=== PATIENT | male | born 1945 | race Caucasian/White ===

== ENCOUNTER → 2021-05-22 13:01 | Outpatient (BNVA) | payer MEDICARE, SELFPAY | PROVIDERS: PCP Family Medicine; Visit Provider Psychiatry & Neurology Neurology | DX: G20 Parkinson's disease (principal); F41.9 Anxiety disorder, unspecified; F32.A Depression, unspecified | CPT/HCPCS: 99202 ==

== ENCOUNTER → 2021-08-04 10:28 | Outpatient (BNVA) | payer MEDICARE, SELFPAY | PROVIDERS: PCP Family Medicine; Visit Provider Psychiatry & Neurology Neurology | DX: G20 Parkinson's disease (principal); F41.9 Anxiety disorder, unspecified; F32.A Depression, unspecified | CPT/HCPCS: 99212 ==

== ENCOUNTER → 2021-10-27 09:53 | Outpatient (BNVA) | payer MEDICARE, SELFPAY | PROVIDERS: PCP Family Medicine; Visit Provider Psychiatry & Neurology Neurology | DX: G20 Parkinson's disease (principal); F41.9 Anxiety disorder, unspecified; F32.A Depression, unspecified; Z79.899 Other long term (current) drug therapy | CPT/HCPCS: 99212 ==

== ENCOUNTER → 2022-02-02 13:28 | Outpatient (BNVA) | payer MEDICARE, SELFPAY | PROVIDERS: PCP Family Medicine; Visit Provider Psychiatry & Neurology Neurology | DX: G20 Parkinson's disease (principal); F41.9 Anxiety disorder, unspecified; F32.A Depression, unspecified; Z79.899 Other long term (current) drug therapy | CPT/HCPCS: 99212 ==

== ENCOUNTER → 2022-05-11 11:03 | Outpatient (BNVA) | payer MEDICARE, SELFPAY | PROVIDERS: PCP Family Medicine; Visit Provider Psychiatry & Neurology Neurology | DX: G20 Parkinson's disease (principal); C85.10 Unspecified B-cell lymphoma, unspecified site; T45.1X5A Adverse effect of antineoplastic and immunosuppressive drugs, initial encounter; F32.A Depression, unspecified; F41.9 Anxiety disorder, unspecified; Z94.84 Stem cells transplant status | CPT/HCPCS: 99212 ==

== ENCOUNTER 2022-09-14 10:30 | Outpatient (AMB) | payer MEDICARE, SELFPAY ==
--- NOTE | 2022-09-14 10:43 | A.OFFVIS_ITS ---
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 He is on sinemet 25/100 tid . His tremors have increased worse in the mornings. He is slower.He reports mild depression,anxiety, lightheaded, fatigued, mild nausea, apathy. Occasional when he stands up he feels mild lightheadedness. Speech is OK , sometimes softer. Its worse ( becomes high and raspy)when stressed. Mild memory issues( chemo brain )- takes lions noel. He also has drooling at night.sleeps with mouth open. Sleep is good. denies any REM behavior disorder. No falls. 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 he has tried venlafaxine , buspar , hydroxyzine.desvenlafaxine He tried to have TMS for anxiety and depression was told that he was not a candidate . [facility], [facility] Medical History (Updated 09/14/22 @ 11:11 by Bethany Vera MD) B-cell lymphoma Chemotherapy adverse reaction Depression Hypersomnia Snoring Surgical History No pertinent past surgical history Stem cells transplant status Family History Brother ALS (amyotrophic lateral sclerosis) Mother Stroke Bladder cancer Father Stroke Social History Household Members: Spouse Alcohol intake: current Alcohol intake frequency: a few times a month Patient Tobacco Use Status: Former Tobacco user Current occupational status: retired Physical Exam Vital Signs: Last Vital Signs Pulse 78 09/14/22 10:46 BP 102/52 L 09/14/22 10:46 Pulse Ox 98 09/14/22 10:46 Oxygen Delivery Method Room Air 09/14/22 10:46 Eyes Pupils: Equal, round and reactive pupils present Neuro Other: UPDRS - 3 Moderately decreased blink and facial expression Speech 1-Slight loss of expression,diction or volume Facial expression 3-Moderate hypomimia,lips parted some of the time Rest Tremors( head, Upper, lower ) 1-Slight and infrequent Action and Postural tremors 0-none Rigidity 2-Mild to Moderate L>R Finger Taps 1-Mild slowing an d or reduction in amplitude Hand movements 1-mild slowing and or reduction in amplitude Rapid Alternating Movements of Hands 1-Mild slowing and or reduction in amplitude Leg agility 1-mild slowing and reduction in amplitude Arising from a chair 0-Normal Posture 1-slightly stooped, could be normal for an older person Gait 0-normal- normal stride decreased arm swing L>R mild stoop Postural stability 1-retropulsion but recovers unaided Body bradykinesia and hypokinesia 1-minimal slowness,giving movement a deliberate character,could be normal for some persons.Possible reduced amplitude Cranial nerves: Yes CN's II-XII intact bilaterally, Yes Equal, round and reactive pupils present, Yes Bilaterally intact EOM present, Yes Nystagmus not present, Yes Normal facial strength present and Yes Midline tongue present Cognition (Neuro): normal cognition Motor exam (neuro): 5/5 motor strength present throughout Psych Affect: normal affect Assessment & Plan Assessment & Plan (1) Parkinson's disease: Code(s): G20 - Parkinson's disease (2) Anxiety: Code(s): F41.9 - Anxiety disorder, unspecified (3) Depression: Code(s): F32.A - Depression, unspecified (4) Snoring: Code(s): R06.83 - Snoring (5) Hypersomnia: Code(s): G47.10 - Hypersomnia, unspecified Plan Sinemet 25/100 tid - suggested to separate it form protein meals by 30 min Add sinemet 25/100 CR qhs Continue physical activity MRI brain - discussed with patient - normal F/u psychiatry Home sleep test Orders: Orders RT home sleep study Today G47.10 - Hypersomnia, unspecified, R06.83 - Snoring Medications: New carbidopa-levodopa 25-100 mg ER 1 tab PO BEDTIME 30 tabs 5RF Coding Level of Care Code Est Pt Level 4 (81619) Diagnoses Parkinson's disease G20 Anxiety F41.9 Depression F32.A Snoring R06.83 Hypersomnia G47.10
[2022-09-14 10:46] VITALS: BP 102/52; PULSE 78; O2SAT 98
== END 2022-09-14 11:17 | disposition home or self-care (01) ==
PROVIDERS: Visit Provider Psychiatry & Neurology Neurology
DX: G20 Parkinson's disease (principal); F41.9 Anxiety disorder, unspecified; F32.A Depression, unspecified; R06.83 Snoring; G47.10 Hypersomnia, unspecified
CPT/HCPCS: 99214

== ENCOUNTER → 2022-09-14 10:30 | Outpatient (BNVA) | payer MEDICARE, SELFPAY | PROVIDERS: Visit Provider Psychiatry & Neurology Neurology | DX: G20 Parkinson's disease (principal); R06.83 Snoring; G47.10 Hypersomnia, unspecified; F41.9 Anxiety disorder, unspecified; F32.A Depression, unspecified | CPT/HCPCS: 99212 ==

== ENCOUNTER → 2022-10-26 13:13 | Outpatient (REF) | payer MEDICARE, SELFPAY | LOC: HO.SL 13:13 | PROVIDERS: Visit Provider Psychiatry & Neurology Neurology | DX: R06.83 Snoring (principal); G47.10 Hypersomnia, unspecified | CPT/HCPCS: 95806 ==

== ENCOUNTER → 2022-10-26 13:35 | Outpatient (BNV) | payer MEDICARE, SELFPAY | PROVIDERS: Visit Provider Psychiatry & Neurology Neurology | DX: R06.83 Snoring (principal) | CPT/HCPCS: 95806 ==

== ENCOUNTER 2023-02-08 11:05 | Outpatient (AMB) | payer MEDICARE, SELFPAY ==
--- NOTE | 2023-02-08 11:36 | MHC.OFFVIS ---
Intake Vital Signs 02/08/23 11:37 Height 5 ft 11 in Weight 188 lb BMI 26.2 BP 110/62 Blood Pressure Location Lt brachial Position Sitting Respiration 15 Pulse 76 Pulse Source Palpation Intake Visit Reasons: 4 mnts f/u appt - Confirmed Intake Note: Pt presents for a 4 month follow up for anxiety. 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 Mood has been worse- depressed, anxious and apathetic.he has tried venlafaxine , buspar , hydroxyzine.desvenlafaxine He tried to have TMS for anxiety and depression was told that he was not a candidate . He has a therapist.He is not exercising much due to the move. He is very sensitive to medications He reports dry mouth, constipation, frequent urination, weakness , increased tremors,sleepiness and tiredness, blurry vision.He wants to know if its related to sinemet. He is on sinemet 25/100 tid and ER at night. . His tremors have increased worse in the mornings. He is slower.He reports mild depression,anxiety, lightheaded, fatigued, mild nausea, apathy.He has some comprehension issues, spaciness. Occasional when he stands up he feels mild lightheadedness. Speech is OK , sometimes softer. Its worse ( becomes high and raspy)when stressed. Mild memory issues( chemo brain )- takes lions noel. He also has drooling at night.sleeps with mouth open. Sleep is good. denies any REM behavior disorder. No falls. [facility] Medical History (Updated 02/08/23 @ 12:01 by Bethany Vera MD) Parkinson's disease without dyskinesia or fluctuating manifestations Hypersomnia Snoring Depression Chemotherapy adverse reaction B-cell lymphoma Surgical History Stem cells transplant status No pertinent past surgical history Family History Brother ALS (amyotrophic lateral sclerosis) Mother Stroke Bladder cancer Father Stroke Social History Household Members: Spouse Alcohol intake: current Alcohol intake frequency: a few times a month Patient Tobacco Use Status: Former Tobacco user Current occupational status: retired Physical Exam Vital Signs: Last Vital Signs Pulse 76 02/08/23 11:37 Resp 15 02/08/23 11:37 BP 110/62 02/08/23 11:37 BMI result Body Mass Index 26.2 Eyes Pupils: Equal, round and reactive pupils present Neuro Other: UPDRS - 3 Moderately decreased blink and facial expression Speech 1-Slight loss of expression,diction or volume Facial expression 3-Moderate hypomimia,lips parted some of the time Rest Tremors( head, Upper, lower ) 1-Slight and infrequent Action and Postural tremors 0-none Rigidity 2-Mild to Moderate L>R Finger Taps 1-Mild slowing an d or reduction in amplitude Hand movements 1-mild slowing and or reduction in amplitude Rapid Alternating Movements of Hands 1-Mild slowing and or reduction in amplitude Leg agility 1-mild slowing and reduction in amplitude Arising from a chair 0-Normal Posture 1-slightly stooped, could be normal for an older person Gait 0-normal- normal stride decreased arm swing L>R mild stoop Postural stability 1-retropulsion but recovers unaided Body bradykinesia and hypokinesia 1-minimal slowness,giving movement a deliberate character,could be normal for some persons.Possible reduced amplitude Cranial nerves: Yes CN's II-XII intact bilaterally, Yes Equal, round and reactive pupils present, Yes Bilaterally intact EOM present, Yes Nystagmus not present, Yes Normal facial strength present and Yes Midline tongue present Cognition (Neuro): normal cognition Motor exam (neuro): 5/5 motor strength present throughout Psych Affect: normal affect Assessment & Plan Assessment & Plan (1) Parkinson's disease without dyskinesia or fluctuating manifestations: Code(s): G20.A1 - Parkinson's disease without dyskinesia, without mention of fluctuations (2) Depression: Code(s): F32.A - Depression, unspecified (3) Anxiety: Code(s): F41.9 - Anxiety disorder, unspecified Plan continue sinemet 25/100 tid continue sinemet CR 25/100 qhs Miralax as needed I will trial him on duloxetine 20mg bid F/u therapist Medications: New duloxetine 20 mg PO BID 60 caps 0RF polyethylene glycol 3350 (Miralax) 17 grams PO .alternate days 510 grams 6RF Coding Level of Care Code Est Pt Level 4 (31960) Diagnoses Parkinson's disease without dyskinesia or fluctuating manifestations G20.A1 Depression F32.A Anxiety F41.9
[2023-02-08 11:37] VITALS: BP 110/62; PULSE 76; RESP 15; BMI 26.2
== END 2023-02-08 12:25 | disposition home or self-care (01) ==
PROVIDERS: PCP Family Medicine; Visit Provider Psychiatry & Neurology Neurology
DX: G20.A1 Parkinson's disease without dyskinesia, without mention of fluctuations (principal); F32.A Depression, unspecified; F41.9 Anxiety disorder, unspecified
CPT/HCPCS: 99214

== ENCOUNTER → 2023-02-08 11:05 | Outpatient (BNVA) | payer MEDICARE, SELFPAY | PROVIDERS: PCP Family Medicine; Visit Provider Psychiatry & Neurology Neurology | DX: F41.9 Anxiety disorder, unspecified (principal); F32.A Depression, unspecified; G20.A1 Parkinson's disease without dyskinesia, without mention of fluctuations | CPT/HCPCS: 99212 ==

== ENCOUNTER 2023-07-05 11:31 | Outpatient (AMB) | payer MEDICARE, SELFPAY ==
[2023-07-05 11:45] VITALS: BP 106/60; PULSE 77; RESP 16; O2SAT 98; BMI 23.5
--- NOTE | 2023-07-05 11:45 | MHC.OFFVIS ---
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 He is doing exercise program at the and is doing 4-5 classes a week. He moved to a smaller house. Mood has been better since duloxetine. But he feels it caused erectile dysfunction. He is on sinemet 25/100 tid and ER at night. . His tremors have increased worse in the mornings Occasional when he stands up he feels mild lightheadedness. Speech is OK , sometimes softer. Its worse ( becomes high and raspy)when stressed. Mild memory issues( chemo brain )- takes lions noel. He also takes CBD qam and is helping him He also has drooling at night.sleeps with mouth open. Sleep is good. denies any REM behavior disorder. No falls. [facility] Medical History Parkinson's disease without dyskinesia or fluctuating manifestations Hypersomnia Snoring Depression Chemotherapy adverse reaction B-cell lymphoma Surgical History Stem cells transplant status No pertinent past surgical history Family History Brother ALS (amyotrophic lateral sclerosis) Mother Stroke Bladder cancer Father Stroke Social History Household Members: Spouse Alcohol intake: current Alcohol intake frequency: a few times a month Patient Tobacco Use Status: Former Tobacco user Current occupational status: retired Physical Exam Vital Signs: Last Vital Signs Pulse 77 07/05/23 11:45 Resp 16 07/05/23 11:45 BP 106/60 07/05/23 11:45 Pulse Ox 98 07/05/23 11:45 Oxygen Delivery Method Room Air 07/05/23 11:45 BMI result Body Mass Index 23.5 Eyes Pupils: Equal, round and reactive pupils present Neuro Other: UPDRS - 3 Moderately decreased blink and facial expression Speech 1-Slight loss of expression,diction or volume Facial expression 3-Moderate hypomimia,lips parted some of the time Rest Tremors( head, Upper, lower ) 1-Slight and infrequent Action and Postural tremors 0-none Rigidity 2-Mild to Moderate L>R Finger Taps 1-Mild slowing an d or reduction in amplitude Hand movements 1-mild slowing and or reduction in amplitude Rapid Alternating Movements of Hands 1-Mild slowing and or reduction in amplitude Leg agility 1-mild slowing and reduction in amplitude Arising from a chair 0-Normal Posture 1-slightly stooped, could be normal for an older person Gait 0-normal- normal stride decreased arm swing L>R mild stoop Postural stability 1-retropulsion but recovers unaided Body bradykinesia and hypokinesia 1-minimal slowness,giving movement a deliberate character,could be normal for some persons.Possible reduced amplitude Cranial nerves: Yes CN's II-XII intact bilaterally, Yes Equal, round and reactive pupils present, Yes Bilaterally intact EOM present, Yes Nystagmus not present, Yes Normal facial strength present and Yes Midline tongue present Cognition (Neuro): normal cognition Motor exam (neuro): 5/5 motor strength present throughout Psych Affect: normal affect Assessment & Plan Assessment & Plan (1) Parkinson's disease without dyskinesia or fluctuating manifestations: Code(s): G20.A1 - Parkinson's disease without dyskinesia, without mention of fluctuations Category: Medical (2) Depression: Code(s): F32.A - Depression, unspecified Category: Medical (3) Anxiety: Code(s): F41.9 - Anxiety disorder, unspecified Category: Medical Plan continue sinemet 25/100 tid continue sinemet CR 25/100 qhs Miralax as needed Duloxetine 20mg bid I will trial on wellbutrin XL 150mg qam F/u therapist Medications: New bupropion HCl SR (Wellbutrin SR) 150 mg PO QAM 30 tabs 6RF Coding Level of Care Code Est Pt Level 4 (88923) Complex EM visit Add On G2211 Diagnoses Parkinson's disease without dyskinesia or fluctuating manifestations G20.A1 Depression F32.A Anxiety F41.9
== END 2023-07-05 12:07 | disposition home or self-care (01) ==
PROVIDERS: PCP Family Medicine; Visit Provider Psychiatry & Neurology Neurology
DX: G20.A1 Parkinson's disease without dyskinesia, without mention of fluctuations (principal); F32.A Depression, unspecified; F41.9 Anxiety disorder, unspecified
CPT/HCPCS: 99214; G2211

== ENCOUNTER → 2023-07-05 11:31 | Outpatient (BNVA) | payer MEDICARE, SELFPAY | PROVIDERS: PCP Family Medicine; Visit Provider Psychiatry & Neurology Neurology | DX: G20.A1 Parkinson's disease without dyskinesia, without mention of fluctuations (principal); F32.A Depression, unspecified; F41.9 Anxiety disorder, unspecified; Z79.899 Other long term (current) drug therapy | CPT/HCPCS: 99212 ==

== ENCOUNTER 2023-12-13 10:59 | Outpatient (AMB) | payer MEDICARE, SELFPAY ==
--- NOTE | 2023-12-13 11:00 | A.OFFVIS_ITS ---
Vital Signs 12/13/23 11:02 Height 5 ft 11 in Weight 167 lb 4 oz BMI 23.3 BP 120/70 Blood Pressure Location Lt brachial Position Sitting Pulse 74 Pulse Source Pulse Oximeter Pulse Oximetry (%) 97 Oxygen Delivery Method Room Air Intake Visit Reasons: 3 mnts f/u appt Intake Note: Patient presents in office for a 5 mo fu- Parkinson's. Patient reports that he feeling pretty good . Lens Silverer Required: No Accompanied by: Self / Same As Patient Allergies No Known Allergies Allergy (Verified 12/13/23 11:04) Medication List - Last Reconciled 12/13/23 by Bethany Vera MD carbidopa-levodopa 25-100 mg 1 tab PO TID 90 days carbidopa-levodopa 25-100 mg ER 1 tab PO BEDTIME duloxetine 20 mg PO BID multivitamin 1 tab PO DAILY sildenafil 100 mg PO DAILY PRN tenofovir disoproxil fumarate 300 mg PO DAILY valacyclovir 1,000 mg PO BID PRN HPI Comments Details: 78y/o right handed male comes for follow up of parkinsons disease. He had speech evaluation but was not able to do therapy sessions due to time limitations. He is doing good since he started duloxetine. he did not do well on wellbutrin His tremors have mildly increased and some in his right hand. He is doing exercise program at the and is doing 4-5 classes a week. He moved to a smaller house. Mood has been better since duloxetine. He is on sinemet 25/100 tid and ER at night. . His tremors have increased worse in the mornings Occasional when he stands up he feels mild lightheadedness. Speech is OK , sometimes softer. Its worse ( becomes high and raspy)when stressed. Mild memory issues( chemo brain )- takes lions noel. He also takes CBD qam and is helping him He also has drooling at night.sleeps with mouth open. Sleep is good. denies any REM behavior disorder. No falls. [facility] Medical History Parkinson's disease without dyskinesia or fluctuating manifestations Hypersomnia Snoring Depression Chemotherapy adverse reaction B-cell lymphoma Surgical History Stem cells transplant status No pertinent past surgical history Family History Brother ALS (amyotrophic lateral sclerosis) Mother Stroke Bladder cancer Father Stroke Social History Household Members: Spouse Alcohol intake: current Alcohol intake frequency: a few times a month Patient Tobacco Use Status: Former Tobacco user Current occupational status: retired Physical Exam Vital Signs: Last Vital Signs Pulse 74 12/13/23 11:02 BP 120/70 12/13/23 11:02 Pulse Ox 97 12/13/23 11:02 Oxygen Delivery Method Room Air 12/13/23 11:02 BMI result Body Mass Index 23.3 Eyes Pupils: Equal, round and reactive pupils present Neuro Other: UPDRS - 3 Moderately decreased blink and facial expression Speech 1-Slight loss of expression,diction or volume Facial expression 3-Moderate hypomimia,lips parted some of the time Rest Tremors( head, Upper, lower ) 1-Slight and infrequent Action and Postural tremors 0-none Rigidity 2-Mild to Moderate L>R Finger Taps 1-Mild slowing an d or reduction in amplitude Hand movements 1-mild slowing and or reduction in amplitude Rapid Alternating Movements of Hands 1-Mild slowing and or reduction in amplitude Leg agility 1-mild slowing and reduction in amplitude Arising from a chair 0-Normal Posture 1-slightly stooped, could be normal for an older person Gait 0-normal- normal stride decreased arm swing L>R mild stoop Postural stability 1-retropulsion but recovers unaided Body bradykinesia and hypokinesia 1-minimal slowness,giving movement a deliberate character,could be normal for some persons.Possible reduced amplitude Cranial nerves: Yes CN's II-XII intact bilaterally, Yes Equal, round and reactive pupils present, Yes Bilaterally intact EOM present, Yes Nystagmus not present, Yes Normal facial strength present and Yes Midline tongue present Cognition (Neuro): normal cognition Motor exam (neuro): 5/5 motor strength present throughout Psych Affect: normal affect Assessment & Plan Assessment & Plan (1) Parkinson's disease without dyskinesia or fluctuating manifestations: Code(s): G20.A1 - Parkinson's disease without dyskinesia, without mention of fluctuations Category: Medical (2) Depression: Code(s): F32.A - Depression, unspecified Category: Medical Qualifiers: Depression Type: unspecified Qualified Code(s): F32.A - Depression, unspecified (3) Anxiety: Code(s): F41.9 - Anxiety disorder, unspecified Category: Medical Plan continue sinemet 25/100 tid continue sinemet CR 25/100 qhs Miralax as needed Duloxetine 20mg bid F/u therapist He does monthly Group therapy session via zoom and in person Coding Level of Care Code Est Pt Level 4 (23529) Complex EM visit Add On G2211 Diagnoses Parkinson's disease without dyskinesia or fluctuating manifestations G20.A1 Depression, unspecified depression type F32.A Depression Type: unspecified Anxiety F41.9
[2023-12-13 11:02] VITALS: BP 120/70; PULSE 74; O2SAT 97; BMI 23.3
== END 2023-12-13 11:50 | disposition home or self-care (01) ==
PROVIDERS: PCP Family Medicine; Visit Provider Psychiatry & Neurology Neurology
DX: G20.A1 Parkinson's disease without dyskinesia, without mention of fluctuations (principal); F32.A Depression, unspecified; F41.9 Anxiety disorder, unspecified
CPT/HCPCS: 99214; G2211

== ENCOUNTER → 2023-12-13 10:59 | Outpatient (BNVA) | payer MEDICARE, SELFPAY | PROVIDERS: PCP Family Medicine; Visit Provider Psychiatry & Neurology Neurology | DX: G20.A1 Parkinson's disease without dyskinesia, without mention of fluctuations (principal); F32.A Depression, unspecified; F41.9 Anxiety disorder, unspecified | CPT/HCPCS: 99212 ==

== ENCOUNTER 2024-06-13 13:31 | Outpatient (AMB) | payer MEDICARE, SELFPAY ==
--- NOTE | 2024-06-13 13:34 | MHC.OFFVIS ---
Vital Signs 06/13/24 13:35 Height 5 ft 11 in Weight 164 lb BMI 22.9 BP 112/70 Blood Pressure Location Rt brachial Position Sitting Intake Visit Reasons: Follow Up 6mo-Conf Intake Note: Patient presents for parkinson's disease Allergies No Known Allergies Allergy (Verified 06/13/24 13:36) Medication List - Last Reconciled 06/13/24 by Bethany Vera MD carbidopa-levodopa 25-100 mg 1 tab PO TID 90 days carbidopa-levodopa 25-100 mg ER 1 tab PO BEDTIME duloxetine 20 mg PO BID multivitamin 1 tab PO DAILY sildenafil 100 mg PO DAILY PRN tenofovir disoproxil fumarate 300 mg PO DAILY valacyclovir 1,000 mg PO BID PRN HPI Comments Details: 79y/o right handed male comes for follow up of parkinsons disease.He reports increase in tremors, some jerky movements , slowness. Occasional when he stands up he feels mild lightheadedness. Speech is OK , sometimes softer. Its worse ( becomes high and raspy)when stressed. Mild memory issues( chemo brain )- takes lions noel.He has slowness in thinking and has trouble with information processing.He has challenges with reasoning. He also reports balance issues. he reports intermittent blurred vision He has difficult following TV shows. He also has drooling at night.sleeps with mouth open. Sleep is good. denies any REM behavior disorder. No falls. He is doing good since he started duloxetine. he did not do well on wellbutrin His tremors have mildly increased and some in his right hand. He is doing exercise program at the and is doing 4-5 classes a week. He moved to a smaller house. He has scheduled an appointment with - [facility] for opinion regarding DBS. [facility] Medical History (Updated 06/13/24 @ 13:59 by Bethany Vera MD) Cognitive change Parkinson's disease without dyskinesia or fluctuating manifestations Hypersomnia Snoring Depression Chemotherapy adverse reaction B-cell lymphoma Surgical History Stem cells transplant status No pertinent past surgical history Family History Brother ALS (amyotrophic lateral sclerosis) Mother Stroke Bladder cancer Father Stroke Social History Household Members: Spouse Alcohol intake: current Alcohol intake frequency: a few times a month Patient Tobacco Use Status: Former Tobacco user Current occupational status: retired Physical Exam Vital Signs: Last Vital Signs BP 112/70 06/13/24 13:35 BMI result Body Mass Index 22.9 Const General: cooperative and comfortable Nutritional Appearance: average body habitus Orientation/consciousness: patient oriented x3 Eyes Pupils: Equal, round and reactive pupils present Neuro Other: UPDRS - 3 Moderately decreased blink and facial expression Speech 1-Slight loss of expression,diction or volume Facial expression 3-Moderate hypomimia,lips parted some of the time Rest Tremors( head, Upper, lower ) 2. left UE rest tremors Action and Postural tremors- mild reynaldo 0-none Rigidity 2-Mild to Moderate L>R Finger Taps 1-Mild slowing an d or reduction in amplitude Hand movements 1-mild slowing and or reduction in amplitude Rapid Alternating Movements of Hands 1-Mild slowing and or reduction in amplitude Leg agility 1-mild slowing and reduction in amplitude Arising from a chair 0-Normal Posture 1-slightly stooped, could be normal for an older person Gait Slow - decreased stride, no arm swing on the left Ue and decreased on the right mild stoop Postural stability 1-retropulsion but recovers unaided Body bradykinesia and hypokinesia 1-minimal slowness,giving movement a deliberate character,could be normal for some persons.Possible reduced amplitude General: patient oriented x3 Cranial nerves: Yes CN's II-XII intact bilaterally, Yes Equal, round and reactive pupils present, Yes Bilaterally intact EOM present, Yes Nystagmus not present, Yes Normal facial strength present and Yes Midline tongue present Motor exam (neuro): 5/5 motor strength present throughout Psych Affect: normal affect Assessment & Plan Assessment & Plan (1) Parkinson's disease without dyskinesia or fluctuating manifestations: Code(s): G20.A1 - Parkinson's disease without dyskinesia, without mention of fluctuations Category: Medical (2) Depression: Code(s): F32.A - Depression, unspecified Category: Medical Qualifiers: Depression Type: unspecified Qualified Code(s): F32.A - Depression, unspecified (3) Anxiety: Code(s): F41.9 - Anxiety disorder, unspecified Category: Medical (4) Cognitive change: Code(s): R41.89 - Other symptoms and signs involving cognitive functions and awareness Category: Medical Plan sinemet 25/100 1 1/2 tabs tid sinemet CR 25/100 qhs Miralax as needed Duloxetine 20mg bid donepezil 5mg qd for 4 weeks then 10 mg qd Neuropsyhc eval speech and hearing for cog eval and therapy F/u therapist He does monthly Group therapy session via zoom and in person Orders: Referrals Speech and Hearing Referral G20.A1 - Parkinson's disease without dyskinesia, without mention of fluctuations, R41.89 - Other symptoms and signs involving cognitive functions and awareness Neuropsychiatry Referral G20.A1 - Parkinson's disease without dyskinesia, without mention of fluctuations, R41.89 - Other symptoms and signs involving cognitive functions and awareness Medications: New donepezil 5 mg PO DAILY 30 tabs 0RF donepezil start after 30 day course of 5 mg donepezil 10 mg PO DAILY 30 tabs 3RF Changed From carbidopa-levodopa 25-100 mg 1 tab PO TID 90 days 270 tabs 3RF To carbidopa-levodopa 25-100 mg 1.5 tabs PO TID 90 days 450 tabs 3RF Coding Level of Care Code Est Pt Level 4 (08277) Complex EM visit Add On G2211 Diagnoses Parkinson's disease without dyskinesia or fluctuating manifestations G20.A1 Depression, unspecified depression type F32.A Depression Type: unspecified Anxiety F41.9 Cognitive change R41.89
[2024-06-13 13:35] VITALS: BP 112/70; BMI 22.9
--- OUTSIDE RECORDS SUMMARY | 2024-06-13 16:03 | XMS_ITS | Data Portability ---
Author Organization [facility], , [facility] Address [address] [place] [address] Care Team Providers Care Marine Diesel Technician Name Role Phone CHRIS MAYS Echocardiography Tech [phone] Assessment No assessment recorded. Plan of Treatment Reminders Order Date Submit Date Provider Last Modified By Organization Details Last Modified Time Details Appointments None record ed. Lab None record ed. Referral None record ed. Procedures None record ed. Surgeries None record ed. Imaging None record ed. Medication Orders None record ed. Patient TargetsNo targets recorded. Patient InstructionsNo instructions recorded. Reason for Referral None Reported. Results Created Date Observation Date Name Description Value Unit Range Abnormal Flag Note LastModifiedBy Organization Detail LastModifiedTime 09/06/19 07 09/06/2006 testo stero ne, free free testosterone 14.9 pg/mL 10.0-5 5.0 Not Available [facility] [address], [address], 03/18/2008 03:36:23 09/06/19 07 09/08/2006 testo stero ne, total testosterone 555 NG/dL male 199-1 586 NG/dL femal e 10-15 6 NG/dL Not Available [facility] [address] [place], [address], 03/18/2008 03:36:21 Result Notes None recorded. Problems Name Problem SNOMED Code Status Onset Date Resolution Date Notes Provider Name and Address Organization Details Recorded Time Impotence of organic origin Active 2000 Not Available [facility] 3 03:02:44 Balanitis xerotica obliterans 278369103 Active 2001 Not Available [facility] 3 03:02:44 Subcutaneo us nodule 95603579 Completed 200201/10/2013 Not Available [facility] 3 02:03:38 Lateral epicondyli tis 927598138 Completed 200401/10/2013 Not Available [facility] 3 02:02:34 Genital herpes simplex 11393434 Active 2007 Not Available [facility] 3 03:02:44 Impacted cerumen 68263638 Completed 200001/10/2013 Not Available [facility] 3 02:02:10 Hip pain 07170478 Completed 200001/10/2013 Not Available [facility] 3 02:01:31 Plantar fasciitis 081194752 Active 2006 Not Available [facility] 3 03:02:44 Allergic asthma without status asthmaticu s 09553925 Active 2005 Not Available [facility] 3 03:02:44 Testicular hypofuncti on 050060303 Active 2006 Not Available [facility] 3 03:02:44 Major depression , melancholi c type 694865099 Active 2001 Not Available [facility] 3 03:02:44 Chalazion 3636712 Completed 200201/10/2013 Not Available [facility] 3 02:04:08 Pain in elbow 64252663 Completed 200501/10/2013 Not Available [facility] 3 02:03:27 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 723189991 Active 2004 Not Available [facility] 3 03:02:44 Breast lump 81241124 Active 2002 Not Available [facility] 3 03:02:44 Common cold 38408471 Completed 200101/10/2013 Not Available [facility] 3 02:00:24 Disorder of penis 00234620 Active 2002 Not Available [facility] 3 03:02:44 Joint pain 27572048 Active 2000 Not Available [facility] 3 03:02:44 Benign neoplasm of large intestine 73915303 Active 2004 Not Available [facility] 3 03:02:44 Tinea pedis 1777854 Active 2007 Not Available [facility] 3 03:02:44 Psychosexu al dysfunctio n 658670555 Active 2001 Not Available [facility] 3 03:02:44 Benign prostatic hyperplasi a 834368497 Active 2005 Not Available [facility] 3 03:02:44 Problem Notes None recorded. Procedures Surgical History Date Name Laterality Status Provider Name and Address Organization Details Recorded Time 07/30/19 22 Tassoni - Colonoscopy completed Chris Mays MD [address] [place] [address], [phone], [facility] 07/29/2021 10:16:57 07/04/19 19 Tassoni - EGD completed Chris Mays MD [address] [place] [address], [phone], [facility] 07/03/2018 10:56:25 07/11/19 15 Tassoni - Colonoscopy completed Chris Mays MD [address] [place] [address], [phone], [facility] 07/10/2014 10:32:13 02/03/20 06 completed Not Available [facility] 1 06:05:52 04/08/19 05 completed Not Available [facility] 1 06:05:52 Imaging Results None recorded. Procedure Notes None recorded. Medical Equipment None Reported. Allergies No known drug allergies Medications Name Sig Start Date Stop Date Status Note LastModified by Organization Details LastModified Time carbidopa 10 mg-levodopa 100 mg tablet Take 1 tablet 3 times a day by oral route. active Not Available Not Available No t Available Valtrex 500 mg tablet 2007 active Take 1.00 tabs daily Not Available Not Available Not Available acyclovir 200 mg capsule 2007 active Take 1.00 caps twice daily; [facility] Not Available Not Available Not Available Viagra 100 mg tablet 2007 active take one half to one tab when needed/[facility] Not Available Not Available Not Available ketoconazole 2 % topical cream 2007 active Take 1.00 applics twice daily Not Available Not Available Not Available omeprazole active Not Available Not Av ailable Not Available tenofovir disoproxil fumarate active Not Available Not Available Not Available Vitals None Recorded Social History None recorded. Functional Status None recorded. Mental Status None recorded. Family History Nothing Reported. Medical History No medical history recorded. Immunizations Vaccine Type Date Status Note Provider Nam e and Address Organization Details Recorded Time Td(adult) unspecified formulation 6 completed Not Available [facility] 01/06/2011 05:21:29 Past Encounters Encounter ID Performer Location Encounter Start Date Encounter Closed Date Diagnosis/Indication Diagnosis SNOMED-CT Code Diagnosis ICD10 Code Diagnosis Note [id number] ALEX [facility], OFFICE [address] [place] [address] 03/31/2000 10:45:00 03/13/2008 02:02:29 [id number] [facility] , [address] [place] [address] 03/31/2000 11:30:00 03/13/2008 02:02:29 [id number] Radiology , [facility] [address] [facility] [place] [id number] 03/31/2000 00:00:00 03/13/2008 02:02:29 [id number] ALEX [facility], OFFICE [address] [place] [address] 05/30/2000 15:30:00 03/13/2008 02:02:29 [id number] ALEX [facility], OFFICE [address] [place] [address] 12/08/2000 09:00:00 03/13/2008 02:02:29 [id number] ALEX [facility] [place], OFFICE [address] [place] [address] 01/23/2002 11:38:37 03/13/2008 02:02:29 [id number] LAB - [address] [place] [address] 02/02/2002 12:31:48 03/13/2008 02:02:29 [id number] ALEX [facility] [place], OFFICE [address] [place] [address] 02/02/2002 11:40:10 03/13/2008 02:02:29 [id number] LAB - [address] [place] [address] 03/08/2002 07:36:50 03/13/2008 02:02:29 [id number] Eye Care, [facility] [address] [place] [address] 09/20/2002 11:05:38 03/13/2008 02:02:29 [id number] [facility] [place], OFFICE [address] [place] [address] 09/20/2002 12:01:41 03/13/2008 02:02:29 [id number] Radiology , [facility] [address] [place] [address] 10/01/2002 14:17:54 03/13/2008 02:02:29 [id number] Radiology , [facility] [address] [place] [address] 10/01/2002 00:00:00 03/13/2008 02:02:29 [id number] [facility] [place], OFFICE [address] [place] [address] 10/21/2003 14:17:43 10/21/2003 17:54:05 [id number] [facility] [place], OFFICE [address] [place] [address] 03/11/2004 08:44:01 03/11/2004 17:20:12 [id number] [facility] - [facility] [address] [place] [address] 03/18/2004 07:15:34 03/18/2004 08:54:11 [id number] [facility], [facility] [address] [place] [address] 04/08/2004 09:48:47 04/08/2004 17:06:12 [id number] ALEX [facility], OFFICE [address] [place] [address] 04/20/2004 15:42:19 03/13/2008 02:02:29 [id number] ALEX [facility], OFFICE [address] [place] [address] 04/30/2005 14:49:10 05/03/2005 09:39:10 [id number] ALEX [facility], OFFICE [address] [place] [address] 01/05/2006 14:27:04 01/06/2006 08:29:17 [id number] ALEX [facility], OFFICE [address] [place] [address] 01/05/2006 14:27:04 01/06/2006 08:29:17 [id number] LAB - [facility] [place] [address] 01/05/2006 15:13:22 01/05/2006 15:13:31 [id number] Physical Therapy, [facility] [place] [address] 01/06/2006 10:41:01 01/06/2006 14:14:30 [id number] Physical Therapy, [facility] [place] [address] 01/17/2006 13:35:51 01/17/2006 13:36:09 [id number] Physical Therapy, [facility] [place] [address] 01/24/2006 14:23:08 01/24/2006 14:50:31 [id number] Physical Therapy, [facility] [place] [address] 01/31/2006 13:45:40 02/01/2006 09:06:48 [id number] [facility] [place] [address] 02/02/2006 09:55:12 02/03/2006 08:54:45 [id number] Physical Therapy, [facility] [place] [address] 02/07/2006 13:37:20 02/07/2006 13:37:54 [id number] [facility], [place] [address] 03/11/2006 14:35:11 03/14/2006 10:33:55 [id number] LAB - [facility] [place] [address] 04/21/2006 12:58:33 04/21/2006 12:58:40 [id number] LAB - [facility] [place] [address] [id number] LAB - [facility] [place] [address] 09/05/2006 11:08:13 09/05/2006 11:08:22 [id number] [facility], [place] [address] 05/30/2007 09:52:14 03/13/2008 02:02:29 [id number] [facility] [place] [address] 07/10/2014 09:10:40 07/10/2014 12:42:23 [id number] Cecily Cuadra RN [facility], [address] [address] 07/03/2018 10:02:33 07/03/2018 14:09:24 [id number] Joni Hermosillo RN [facility], [address] [address] 07/29/2021 09:14:30 07/29/2021 13:10:11 Health Concerns Section Related Observation LastModified by Organization Detai ls LastModified Time None Recorded Concern Status LastModified by Organization Details LastModified Time None Recorded Advance Directives Directive None Recorded Payers Encounter Date Sequence Insurance Name Policy Number Policy Crowley Covered Member ID Crowley Member ID Guarantor Name 09/05/2006 1 [place] [id number] Amna Noland [id number] 05/30/2007 1 [place] [id number] Amna Noland [id number] 07/10/2014 2 [place] Thiago A Logan [id number] Thiago A Logan 07/10/2014 1 [place] [id number] Thiago A Logan [id number] [address] A [place] 07/03/2018 1 [place] Thiago A Logan [id number] Thiago A Logan 07/03/2018 2 [place] [id number] Thiago A Logan [id number] Thiago A Logan 07/29/2021 1 [place] Thiago A Logan [id number] Thiago A Logan 07/29/2021 2 [place] [id number] Thiago A Logan [id number] Thiago A Logan
== END 2024-06-13 14:13 | disposition home or self-care (01) ==
LOC: HO.HSMS 13:32
PROVIDERS: PCP Family Medicine; Visit Provider Psychiatry & Neurology Neurology
DX: G20.A1 Parkinson's disease without dyskinesia, without mention of fluctuations (principal); F32.A Depression, unspecified; F41.9 Anxiety disorder, unspecified; R41.89 Other symptoms and signs involving cognitive functions and awareness
CPT/HCPCS: 99214; G2211

== ENCOUNTER → 2024-06-13 13:31 | Outpatient (BNVA) | payer MEDICARE, SELFPAY | PROVIDERS: PCP Family Medicine; Visit Provider Psychiatry & Neurology Neurology | DX: G20.A1 Parkinson's disease without dyskinesia, without mention of fluctuations (principal); F32.A Depression, unspecified; F41.9 Anxiety disorder, unspecified; R41.89 Other symptoms and signs involving cognitive functions and awareness | CPT/HCPCS: 99212 ==

== ENCOUNTER 2024-09-19 14:23 | Outpatient (RCR) | payer MEDICARE, SELFPAY ==
--- NOTE | 2024-09-24 17:16 | MHC.SP.ADU ---
Referring provider: Bethany Vera MD Reason for Referral: Parkinson's, Cognition Type of Treatment: 57795 Standardized Cognitive Performance Testing, per hour Date of Plan of Treatment: 09/19/24 Onset of Symptoms/Illness: 09/20/23 Date Treatment Started: 09/19/24 Medical Diagnosis: Parkinson's Primary Speech Language Diagnosis: R41.841 Cognitive communication disorder History Thiago is a 79 year old male referred to [facility] for an evaluation by Dr. Bethany Vera for cognition and Parkinson?s. Thiago reports concern for cognition, voice, and speech. In regards to cognition, Thiago reports that he has difficulty following television shows without subtitles, has some difficulty finding words, and sometimes feels ?spaced out? or lightheaded which impacts his cognition. He reports that his cognition is variable; somedays he feels ?on? whereas other days he feels ?off.? Thiago reports that his voice is raspy, high pitched, and slightly quieter than it used to be. He reports that the raspy vocal quality started 4-5 years ago prior to his Parkinson?s diagnosis. Thiago was seen for a voice evaluation by a Speech-Language Pathologist about a year ago with Prashanth Deleon at [facility]. He reports that they discussed the LSVT program, however he was not ready to make a commitment to that schedule and had other priorities in regards to his Parkinson?s. Thiago also reports that he believes that he slurs his words, another quality which he describes to be variable. Thiago is in the process of moving forward with deep brain stimulation (DBS) at [facility], which he reports is his main focus over the next few months. Thiago attends several movement classes specifically for individuals with Parkinson?s at the [facility] [place] weekly. Thiago attended today?s evaluation soon after a strength and flexibility class at the [facility] [place]. Medical History: anxiety/depression, cancer, Parkinson's Respiratory Needs: Room Air Patient Orientation: Alert & Oriented x 4 Social History: Employment Status: Retired Highest level of education obtained: Completed Bachelor's Current Living Situation: Lives in private residence with other(s) Assistive Devices in use: glasses Past Speech Language Therapy: Thiago was seen for a voice evaluation approximately one year ago with Prashanth Deleon LOCKSTITCH POCKET SETTER Swallowing History: Dysphagia Specific: Within Functional Limits Comments: Thiago reports no concerns for swallowing Pre-eval Risk for Aspiration: Neurological Condition Pre-evaluation Dietary Consistencies: Regular Pre-eval Liquid Intake: Thin Pre-eval Medication Intake: Whole with Liquid Reported Speech, Language, Cognition difficulties: Understanding Attention Reading Memory Cognition Speaking Problem Solving Writing Voice Assessment Speech Production: Within Functional Limits MOTOR SPEECH Alternating motion rate (AMR) and sequential motion rate (SMR) were assessed. AMR is assessed by having the individual produce the following sounds as fast as possible in three separate tasks: /p/ (?puh?), /t/ (?tuh?), and /k/ (?kuh?). SMR is assessed by having the individual produce the three sounds together as fast as possible in one singular task: ?puh tuh kuh.? Overall, AMR productions were variable. Lois production of /p/ was quick and precise, /t/ was slightly slower but still precise, and /k/ was the slowest production and moderately imprecise. Lois production of SMR was slow and in the appropriate order, yet largely coordinated with the exception of /k/ being less intelligible. Informal Voice Assessment: Voice Loudness: Normal Voice Phonatory-based Quality: Normal Voice Pitch: Normal Tests of Cognition: RBANS: Repeatable Battery for the Assessment of Neuropsychological Status The RBANS-Updated Form A assesses aspects of cognitive memory, language, and attention skills. The RBANS is considered a screening battery for cognitive function and is repeatable for the purpose of evaluating any changes in function. It is intended for use with adolescents and adults, ages 12 to 89 years. Composite domains assessed in this test are: Immediate Memory, Visuospatial/Constructional, Language, Attention, and Delayed Memory. Interpretation of test performance is based on normative data on individuals between ages 70-79. It is noteworthy to mention the impact that symptoms of Parkinson?s has had on Lois fine motor skills such as writing. This may have negatively impacted the figure drawing and coding tasks which require the individual to use fine motor writing skills. Lois performance is summarized below: IMMEDIATE MEMORY: This domain assesses the individual's ability to remember information immediately after it is presented. List Learning Total Score: 27 Scaled Score: 11 Interpretation: Average Story Memory Total Score: 16 Scaled Score: 9 Interpretation: Average Immediate Memory Index Score: 100 Percentile: 50 Interpretation: Average VISUOSPATIAL/CONSTUCTIONAL: This domain assesses the individual's ability to perceive spatial relations and to construct a spatially accurate copy of a drawing. Figure Copy Total Score: 18 Scaled Score: 10 Interpretation: Average Line Orientation Total Score: 19 Percentile Group: >75 Interpretation: High Average Visuospatial/Constructional Index Score: 109 Percentile: 73 Interpretation: Average LANGUAGE: This domain assesses the individual's ability to respond verbally to either naming or retrieving learned material. Picture Naming Total Score: 10 Percentile Group: 51-75 Interpretation: Average Semantic Fluency Total Score: 11 Scaled Score: 4 Interpretation: Borderline Language Index Score: 85 Percentile: 16 Interpretation: Low Average ATTENTION: This domain assesses the individual's capacity to remember and manipulate both visually and orally presented information in short-term memory storage. Digit Span Total Score: 15 Scaled Score: 16 Interpretation: Very Superior Coding Total Score: 31 Scaled Score: 7 Interpretation: Low Average Attention Index Score: 109 Percentile: 73 Interpretation: Average DELAYED MEMORY: This domain assesses the individual's anterograde memory capacity. Low scores indicate difficulties with recognition and retrieval of information from long-term memory stores. List Recall Total Score: 6 Percentile Group: 51-75 Interpretation: Average List Recognition Total Score: 18 Percentile Group: 17-25 Interpretation: Low Average Story Recall Total Score: 9 Scaled Score: 10 Interpretation: Average Figure Recall Total Score: 10 Scaled Score: 8 Interpretation: Average Delayed Memory Index Score: 86 Percentile: 18 Interpretation: Low Average Sum of Index Scores: 489 Total Scale Score: 96 Percentile: 39 Interpretation: Average Jay Morton (1998). Repeatable Battery for the Assessment of Neuropsychological Status [Manual]. Conrath ID: Dylan. Impressions and Recommendations Summary: Based on standardized testing using the RBANS on this date, Thiago performed average overall compared to individuals age 60-69. He scored ?borderline? in one task, semantic fluency, in which he was asked to name as many fruits and vegetables as he could in one minute. During the task, Thiago only named fruits. When discussed at the end of the task, Thiago reported that he missed the ?vegetable? part of the directions. Thiago?s voice and motor speech were informally evaluated largely through spontaneous speech. To this trained and unfamiliar clinician, Thiago?s voice was perceptually judged to be of normal pitch, volume, and quality. Thiago?s voice was not judged to be of raspy quality during the evaluation. Thiago was noted to clear his throat intermittently throughout the visit. Recommendation for Speech Therapy: NA:Typical Evaluation It is recommended that Thiago be re-evaluated by a Speech-Language Pathologist in one year to monitor concerns for cognition, voice, and speech. If Thiago should have any concerns sooner, it is recommended he be referred earlier for re-evaluation. Patient Education: Completed: Yes Patient/Caregiver Education: Described Results of Evaluation Other Gas Shovel Operator Clinican/Clinical Fellow: No Supervisory Statement: N/A Speech Language Pathologist: Sarah Son M.A., CCC-LOCKSTITCH POCKET SETTER
== END 2024-09-26 11:05 | disposition home or self-care (01) ==
LOC: HO.SH 14:23
PROVIDERS: PCP Family Medicine; Visit Provider Psychiatry & Neurology Neurology
DX: R41.89 Other symptoms and signs involving cognitive functions and awareness (principal); G20.A1 Parkinson's disease without dyskinesia, without mention of fluctuations
CPT/HCPCS: 96125

== ENCOUNTER 2024-10-08 11:04 | Outpatient (AMB) | payer MEDICARE, SELFPAY ==
[2024-10-08 11:05] VITALS: BP 108/62; PULSE 71; O2SAT 98; BMI 22.6
--- NOTE | 2024-10-08 11:05 | MHC.OFFVIS ---
Vital Signs 10/08/24 11:05 Height 5 ft 11 in Weight 162 lb BMI 22.6 BP 108/62 Blood Pressure Location Rt brachial Position Sitting Pulse 71 Pulse Source Pulse Oximeter Pulse Oximetry (%) 98 Oxygen Delivery Method Room Air Intake Visit Reasons: follow up Intake Note: Follow up Parkinson's Auto Radiator Specialist Required: No Accompanied by: Self / Same As Patient Allergies No Known Allergies Allergy (Verified 10/08/24 11:09) Medication List - Last Reconciled 10/08/24 by Bethany Vera MD atorvastatin 10 mg PO DAILY carbidopa-levodopa 25-100 mg 1.5 tabs PO TID 90 days carbidopa-levodopa 25-100 mg ER 1 tab PO BEDTIME diclofenac sodium 75 mg PO BID duloxetine 20 mg PO ONCE multivitamin 1 tab PO DAILY sildenafil 100 mg PO DAILY PRN tenofovir disoproxil fumarate 300 mg PO DAILY valacyclovir 1,000 mg PO BID PRN HPI Comments Details: 79y/o right handed male comes for follow up of parkinsons disease.He reports increase in tremors, some jerky movements , slowness. Occasional when he stands up he feels mild lightheadedness. Speech is OK , sometimes softer. Its worse ( becomes high and raspy)when stressed. Mild memory issues( chemo brain )- takes lions noel.He has slowness in thinking and has trouble with information processing.He has challenges with reasoning. He also reports balance issues. he reports intermittent blurred vision He has difficult following TV shows. He also has drooling at night.sleeps with mouth open. Sleep is good. denies any REM behavior disorder. No falls. He is doing good since he started duloxetine but he decreased dose due to decreased libido. His tremors have mildly increased and some in his right hand. He is doing exercise program at the and is doing 4-5 classes a week. He moved to a smaller house. He saw - [facility] for opinion regarding DBS.-scheduled for MRI. Scheduled for Feb 06 for first surgery His coordinator is Ernesto Richardson-[phone] [facility] -speech and voice training , also scheduled psych evaluation. [facility] Medical History Cognitive change Parkinson's disease without dyskinesia or fluctuating manifestations Hypersomnia Snoring Depression Chemotherapy adverse reaction B-cell lymphoma Surgical History Stem cells transplant status No pertinent past surgical history Family History Brother ALS (amyotrophic lateral sclerosis) Mother Stroke Bladder cancer Father Stroke Social History Household Members: Spouse Alcohol intake: current Alcohol intake frequency: a few times a month Patient Tobacco Use Status: Former Tobacco user Current occupational status: retired Physical Exam Vital Signs: Last Vital Signs Pulse 71 10/08/24 11:05 BP 108/62 10/08/24 11:05 Pulse Ox 98 10/08/24 11:05 Oxygen Delivery Method Room Air 10/08/24 11:05 BMI result Body Mass Index 22.6 Const General: cooperative and comfortable Nutritional Appearance: average body habitus Orientation/consciousness: patient oriented x3 Eyes Pupils: Equal, round and reactive pupils present Neuro Other: UPDRS - 3 Moderately decreased blink and facial expression Speech 1-Slight loss of expression,diction or volume Facial expression 3-Moderate hypomimia,lips parted some of the time Rest Tremors( head, Upper, lower ) 2. left UE rest tremors Action and Postural tremors- mild reynaldo 0-none Rigidity 2-Mild to Moderate L>R Finger Taps 1-Mild slowing an d or reduction in amplitude Hand movements 1-mild slowing and or reduction in amplitude Rapid Alternating Movements of Hands 1-Mild slowing and or reduction in amplitude Leg agility 1-mild slowing and reduction in amplitude Arising from a chair 0-Normal Posture 1-slightly stooped, could be normal for an older person Gait Slow - decreased stride, no arm swing on the left Ue and decreased on the right mild stoop Postural stability 1-retropulsion but recovers unaided Body bradykinesia and hypokinesia 1-minimal slowness,giving movement a deliberate character,could be normal for some persons.Possible reduced amplitude General: patient oriented x3 Cranial nerves: Yes CN's II-XII intact bilaterally, Yes Equal, round and reactive pupils present, Yes Bilaterally intact EOM present, Yes Nystagmus not present, Yes Normal facial strength present and Yes Midline tongue present Motor exam (neuro): 5/5 motor strength present throughout Psych Affect: normal affect Assessment & Plan Assessment & Plan (1) Parkinson's disease without dyskinesia or fluctuating manifestations: Code(s): G20.A1 - Parkinson's disease without dyskinesia, without mention of fluctuations Category: Medical (2) Depression: Code(s): F32.A - Depression, unspecified Category: Medical Qualifiers: Depression Type: unspecified Qualified Code(s): F32.A - Depression, unspecified (3) Anxiety: Code(s): F41.9 - Anxiety disorder, unspecified Category: Medical (4) Cognitive change: Code(s): R41.89 - Other symptoms and signs involving cognitive functions and awareness Category: Medical Plan Sinemet 25/100 1 1/2 tabs tid sinemet CR 25/100 qhs Miralax as needed Duloxetine 20mg qd Neuropsyhc eval- scheduled by [facility] speech [facility] hearing for cog eval and therapy - [facility] F/u therapist Medications: Changed From duloxetine 20 mg PO BID 180 caps 3RF To duloxetine 20 mg PO ONCE 90 caps 3RF Coding Level of Care Code Est Pt Level 4 (14674) Complex EM visit Add On G2211 Diagnoses Parkinson's disease without dyskinesia or fluctuating manifestations G20.A1 Depression, unspecified depression type F32.A Depression Type: unspecified Anxiety F41.9 Cognitive change R41.89
--- OUTSIDE RECORDS SUMMARY | 2024-10-08 12:17 | XMS_ITS | Encounter Summary ---
Author Organization [facility] Address [address] [place] [address] [place] [address] Phone Care Team Providers Care Photo Colorer Name Role Phone Lida Haile DO Primary Care Provider [phone] Lida Haile DO Unavailable Mona Oliveira PAPER ROLLER Unavailable [phone] Jose Roberto Flores MD Unavailable Nenita Knox Unavailable [email or web address] Mayra Delgado RN Unavailable [phone] Lotus Jaime RN Unavailable [email or web address] Yumiko Diaz [facility] Unavailable [phone] Lida Haile DO Unavailable Mona Oliveira PAPER ROLLER Unavailable [phone] Jose Roberto Flores MD Unavailable [phone] Encounter Details Date Type Department Care Team (Late st Contact Info) Description 09/09/2021 Procedure Pass [facility], Ct Scan - [address] [id number] Social History Tobacco Use Types Packs/Day Years Used Date Smoking Tobacco: Former Cigarettes Q uit: 12/30/1973 Smokeless Tobacco: Never Alcohol Use Standard Drinks/Week Comments Yes 0 (1 standard drink = 0.6 oz pur e alcohol) 3-4 times a week at most Sex and Gender Information Value Date Recorded Sex Assigned at Male 03/19/2019 12:27 PM EST Legal Sex Male 10:37 PM EDT Gender Identity Male 03/19/2019 12:27 PM EST Sexual Orientation Choose not to disclose 2019 12:27 PM EST 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 Not on file Not on file Not on file documented as of this encounter Plan of Treatment Upcoming Encounters Date Type Department Care Team (Latest Contact Info) Description 09/16/2024 Procedure Pass [facility] - MRI [address] [place] [address] 10/31/2024 10:10 AM EDT Appointment [facility] - MRI [address] [place] [address] Latrice Jones PA-C [address] [address] [email or web address] 11/19/2024 8:30 AM EDT Office Visit [facility] Department of Neurology [address] [place] [address], [address] [place] [address], [address] [place] [address] Cecily Mejia CNP [address] [place] [address] [email or web address] 11/19/2024 10:00 AM EDT Office Visit [facility] Department of Neurology [address] [place] [address], [address] [place] [address], [address] [place] [address] Adriana Wei MD [address] [place] [address] [email or web address] 11/19/2024 11:00 AM EDT Office Visit [facility] Department of Neurology [address] [facility], 8th Floor, [address] [place] [address] Cecily Mejia, PANTOGRAPH ENGRAVER [address] [place] [address] [email or web address] 01/01/2025 10:40 AM EST Appointment [facility] [address] [place] [address] Jose Roberto Flores MD [address] [place] [address] [email or web address] 01/01/2025 11:40 AM EST Office Visit [facility] at [facility] [address] [place] [address] Jose Roberto Flores MD [address] [place] [address] [email or web address] 01/07/2025 11:00 AM EST Office Visit [facility] Voice Speech [facility] [address] [facility] 11th [place] [address] Lien Garrido, [facility]STAMP COLLECTOR [address] [place] [address] [email or web address] 01/07/2025 1:00 PM EST Office Visit [facility] Psychology Assessment Center [address] [facility] 7th [place] [address] Pily Camara, PhD [address] [facility] [address] [place] [address] [email or web address] 01/09/2025 11:30 AM EST Pre-Admission Testing [facility] Pre-Procedure Evaluation Department [place] [address] [facility] [place], Provider 01/21/2025 11:30 AM EST Office Visit [facility] [address] [place] [address] Lida Haile, DO [address] [facility], [address] [place] [address] [email or web address] 02/06/2025 Procedure Pass [facility] PERIOPER[facility]IVE [facility]PT [address] [place] [phone] 02/06/2025 9:30 AM EST Hospital Encounter [facility] [address] [place] [phone] Rohit Rendon MD, PhD [address] [place] [phone] [email or web address] 02/06/2025 9:30 AM EST - 02/06/2025 4:45 PM EST Surgery [facility] [address] [place] [phone] Rohit Rendon MD, PhD [address] [place] [phone] [email or web address] [email or web address] STIMULATOR DEEP BRAIN 02/19/2025 11:30 AM EST Pre-Admission Testing [facility] Pre-Procedure Evaluation Department [place] [address] [facility] [place], Provider 02/27/2025 Procedure Pass [facility] [address] [place] [phone] 02/27/2025 9:30 AM EST Hospital Encounter [facility] [address] [place] [phone] Rohit Rendon MD, PhD [address] [place] [address] [email or web address] 02/27/2025 9:30 AM EST - 02/27/2025 11:52 AM EST Surgery [facility] [address] [place] [phone] Rohit Rendon MD, PhD [id number] [place] [address] [email or web address] [email or web address] PULSE GENERATOR INFRACLAVICULAR 03/04/2025 10:00 AM EST Office Visit [facility] Department of Neurology [address] [place] [address], [address] [facility], [address] [place] [address] Adriana Wei MD [address] [place] [address] [email or web address] 03/18/2025 10:00 AM EST Office Visit [facility] Department of Neurology [address] [place] [address], [address] [facility], [address] [place] [address] Adriana Wei MD [address] [place] [address] [email or web address] 04/01/2025 10:00 AM EST Office Visit [facility] Department of Neurology [address] [place] [address], [address] [facility], [address] [place] [address] Adriana Wei MD [address] [place] [address] 04/15/2025 10:00 AM EST Office Visit [facility] Department of Neurology [address] [place] [address], [address] [facility], [address] [place] [address] Adriana Wei MD [address] [place] [address] [email or web address] 08/05/2025 11:30 AM EDT Office Visit [facility] Department of Neurology [address] [place] [address], [address] [facility], [address] [place] [address] Adriana Wei MD [address] [place] [address] [email or web address] Scheduled Procedures Name Priority Associated Diagnoses Date/Ti me INSERTION STIMULATOR DEEP BRAIN Parkinson's disease with dyskinesia and fluctuating manifestations 02/06/2025 9:[address] Parkinson's disease with dyskinesia and fluctuating manifestations 02/06/2025 9:30 AM EST PLACEMENT PULSE GENERATOR INFRACLAVICULAR Parkinson's disease with dyskinesia and fluctuating manifestations 02/27/2025 9:30 AM EST documented as of this encounter Visit Diagnoses Not on filedocumented in this encounter Additional Health Concerns Assessment Noted Time PHQ-2 Depression Total Score: 0 02/24/19 3:09 PM EST documented as of this encounter Care Teams Photo Colorer Relationship Specialty Start Date End Date Lida Haile DO [address] [place] [address] [email or web address] PCP - General 12/06/16 Lida Haile DO [address] [place] [address] [email or web address] Historical LMR Provider 12/09/16 Mona Oliveira FNP [address] [place] [address] [email or web address] Nurse Practitioner Oncology 06/07/18 12/23/21 Jose Roberto Flores MD [address] [place] [phone] [email or web address] Primary Oncologist Medical Oncology 10/26/18 12/23/21 Nenita Knox [address] [place] [address] [email or web address] Prevention Engineer 12/28/18 Mayra Delgado, RN [address] [place] [address] [email or web address] Registered Nurse Autism Tutor 11/21/18 Lotus Jaime, REYNALDO [address] [place], [place] [email or web address] Registered Nurse Hematology and Oncology 03/26/19 Yumiok Diaz, [facility] [address] [place] [address] [email or web address] Vegetable Worker Oncology 03/20/19 Lida Haile DO [address] [place] [address] [address] [place] [address] [email or web address] Insurance Assigned Provider 05/28/23 Mona Oliveira FNP [address] [place] [address] Nurse Practitioner Medical Oncology 06/07/18 09/03/24 Jose Roberto Flores MD [address] [place] [address] [email or web address] Primary Oncologist Medical Oncology 10/26/18 documented as of this encounter Additional Source Comments The information contained in this document represents components of the legal health record. It is not the complete legal health record.[facility]
--- OUTSIDE RECORDS SUMMARY | 2024-10-08 12:17 | XMS_ITS | Clinical Summary ---
Author Organization [facility] Address [address] [place] [address] Care Team Providers Care Organisational Psychologist Name Role Phone [email or web address] Primary Care Provider [phone] Allergies No known active allergies Medications No known medications Encounters Date Type Department Care Team Description 09/19/2024 Telephone [facility] [address] [place] [address] Colten Gresham MD PhD 08/13/2024 Telephone [facility] [address] [place] [address] Colten Gresham MD PhD from Last 3 Months Social History Tobacco Use Types Packs/Day Years Used Date Smoking Tobacco: Never Assessed Sex and Gender Information Value Date Recorded Sex Assigned at Male 06/15/2024 11:34 AM EDT Legal Sex Male 11:33 AM EDT Gender Identity Male 06/15/2024 11:34 AM EDT Sexual Orientation Choose not to disclose 2024 2:44 PM EDT Last Filed Vital Signs Vital Sign Reading Time Taken Comments Blood Pressure 145/78 06/22/2024 10:41 AM EDT Pulse 71 06/22/2024 10:41 AM EDT Temperature - - Respiratory Rate 18 06/22/2024 10:41 AM EDT Oxygen Saturation 100% 06/22/2024 10:41 AM EDT Inhaled Oxygen Concentration - - Weight - - Height - - Body Mass Index - - Plan of Treatment Health Maintenance Due Date Last Done Comments Medicare AWV 1946 Hepatitis B Vaccines (1 of 3 - Risk 3-dose series) 2005 09/25/2020 RSV Vaccine (60+ years old a nd patients) (1 - 1-dose 75+ series) 2020 COVID-19 Vaccine (4 - 2023-2 5 season) 2023 11/02/2021, 05/27/2020, 04/29/2020 Alcohol/Substance Use Screening 02/22/2024 Depression Screening and Follow-Up 02/22/2024 Health Care Proxy Review 02/22/2024 Social Drivers of Health Ana Maria ual Screening 02/22/2024 Influenza Vaccine (#1) 2024 , 11/23/2022, 11/02/2021, Additional history exists DTaP,Tdap,and Td Vaccines (5 - Td or Tdap) 04/26/2033 04/27/2023, 09/25/2020, 04/10/2020, Additional history exists Zoster Vaccines Completed 07/14/2020, 04/10/2020 Pneumococcal Vaccine: 50+ Years Completed 09/25/2020, 04/10/2020, 12/22/2017, Additional history exists Hepatitis C Screening Completed 12/10/2020 Insurance MEDICARE [facility] Care Teams Organisational Psychologist Relationship Specialty Start Date End Date Thiago Haile [facility] [address], [address] [place] [address] PCP - General Family Medicine 06/15/24
== END 2024-10-08 12:08 | disposition home or self-care (01) ==
PROVIDERS: PCP Family Medicine; Visit Provider Psychiatry & Neurology Neurology
DX: G20.A1 Parkinson's disease without dyskinesia, without mention of fluctuations (principal); F32.A Depression, unspecified; F41.9 Anxiety disorder, unspecified; R41.89 Other symptoms and signs involving cognitive functions and awareness
CPT/HCPCS: 99214; G2211

== ENCOUNTER → 2024-10-08 11:04 | Outpatient (BNVA) | payer MEDICARE, SELFPAY | PROVIDERS: PCP Family Medicine; Visit Provider Psychiatry & Neurology Neurology | DX: G20.A1 Parkinson's disease without dyskinesia, without mention of fluctuations (principal); F32.A Depression, unspecified; F41.9 Anxiety disorder, unspecified; R41.89 Other symptoms and signs involving cognitive functions and awareness | CPT/HCPCS: 99212 ==